=== PATIENT | male | born 1990 | race Hispanic/Latino ===

== ENCOUNTER 2017-11-28 10:06 | Emergency (ER) | payer OTHER ==
[2017-11-28 10:33] VITALS: TEMP 97.3; O2SAT 98
[2017-11-28 10:42] VITALS: BP 130/80; PULSE 92; RESP 18
[2017-11-28] MEDS ORDERED: Lidocaine 5% Patch TD STA (11:08)
[2017-11-28] MEDS ORDERED: Lidocaine 5% Patch TD ONE (11:19)
--- NOTE | 2017-11-28 11:29 | ED PDOC ---
Lower Extremity Pain/Injury Time Seen by Provider: 11/28/17 10:53 Chief Complaint (Nursing): Lower Extremity Problem/Injury History Per: Patient Additional Complaint(s): Pt. states yesterday at work he developed pain in the R buttock while at work. States he sits down at work for approximately 8hrs a day and keeps his wallet in the R back pocket. Pain progressively worsened last night. Reports it is worse with movement of the R hip. Denies trauma, numbness, tingling, radiation of pain, dysuria, hematuria, back pain, abd pain. Past Medical History Reviewed: Historical Data, Nursing Documentation, Vital Signs Vital Signs: Last Vital Signs Temp 97.3 F L 11/28/17 10:42 Pulse 92 H 11/28/17 10:42 Resp 18 11/28/17 10:42 BP 130/80 11/28/17 10:42 Pulse Ox 98 11/28/17 10:42 - Surgical History Surgical History: No Surg Hx - Family History Family History: States: No Known Family Hx - Home Medications Home Medications: Ambulatory Orders Medication Instructions Recorded Cyclobenzaprine [Cyclobenzaprine 10 mg PO Q8 PRN #10 tab 11/28/17 HCl] Lidocaine 5% [Lidoderm] 1 ea TD DAILY PRN #10 patch 11/28/17 Naproxen [Naprosyn] 500 mg PO BID PRN #10 tab 11/28/17 - Allergies Allergies/Adverse Reactions: Allergies Allergy/AdvReac Type Severity Reaction Status Date / Time No Known Allergies Allergy Verified 11/28/17 10:27 Review of Systems ROS Statement: Except As Marked, All Systems Reviewed And Found Negative Physical Exam - Physical Exam Appears: Positive for: Well, Non-toxic, No Acute Distress Skin: Positive for: Normal Color, Warm. Negative for: Rash Eye Exam: Positive for: Normal appearance Pulses-Dorsalis Pedis (L): 2+ Pulses-Dorsalis Pedis (R): 2+ Pulses-Femoral (L): 2+ Pulses-Femoral (R): 2+ Gastrointestinal/Abdominal: Positive for: Normal Exam, Soft. Negative for: Tenderness Back: Positive for: Normal Inspection. Negative for: L CVA Tenderness, R CVA Tenderness, Vertebral Tenderness Extremity: Positive for: Other (R posterior superior thigh just inferior to R buttocks with mild tenderness without warmth, erythema, break in skin integrity , or swelling; SLR positive in R leg; SLR negative in L leg). Negative for: Calf Tenderness (b/l) Neurologic/Psych: Positive for: Alert, Oriented, Gait (antalgic gait noted). Negative for: Aphasia, Facial Droop - ECG O2 Sat by Pulse Oximetry: 98 - Radiology X-Ray: Interpreted by Me (R hip/pelvic x-ray) X-Ray Interpretation: No Acute Disease - Progress ED Course And Treament: Toradol 30mg IM, flexeril 10mg PO, lidoderm patch ordered. R hip x-rays ordered. On re-evaluation, pt. reports moderate analgesia. Disposition - Clinical Impression Clinical Impression: Hip pain - Patient ED Disposition Is Patient to be Admitted: No - Disposition Referrals: Ricardo Asif III, MD [[facility] Provider[facility] Disposition: Routine/Home Disposition Time: 12:36 Condition: IMPROVED Additional Instructions: YANG HERRERA, thank you for letting us take care of you today. Your provider was Ambrose Hinson MD and you were treated for RIGHT LEG PAIN. The emergency medical care you received today was directed at your acute symptoms. If you were prescribed any medication, please fill it and take as directed. It may take several days for your symptoms to resolve. Return to the Emergency Department if your symptoms worsen, do not improve, or if you have any other problems. Please contact your doctor or call one of the physicians/clinics you have been referred to that are listed on the Patient Visit Information form that is included in your discharge packet. Bring any paperwork you were given at discharge with you along with any medications you are taking to your follow up visit. Our treatment cannot replace ongoing medical care by a primary care provider outside of the emergency department. Thank you for allowing the [facility] team to be part of your care today. If you had an X-Ray or CT scan: A Radiologist will review the ED reading if any change in treatment is needed we will contact you. If you had a blood, urine, or wound culture: It will take several days for the results, if any change in treatment is needed we will contact you. If you had an STI test: It will take 48 hours for the results. Please call after 1 week if you have not heard back. Prescriptions: Cyclobenzaprine [Cyclobenzaprine HCl] 10 mg PO Q8 PRN #10 tab PRN Reason: Muscle Spasm Lidocaine 5% [Lidoderm] 1 ea TD DAILY PRN #10 patch PRN Reason: pain Naproxen [Naprosyn] 500 mg PO BID PRN #10 tab PRN Reason: Pain Instructions: Hip Pain (DC) Forms: [employer] (Kosovan), [facility] ED School/Work Excuse Print Language: INDONESIAN
--- NOTE | 2017-11-28 13:38 | RAD ---
Date of service: 11/28/2017 PROCEDURE: Pelvis and right hip HISTORY: Pain. No history of recent/ related trauma provided COMPARISON: None TECHNIQUE: Standard protocol for this study/examination. FINDINGS: There are no osseous abnormalities to suggest fracture. The pelvic ring is intact. Preserved femoral-acetabular relationship. Negative study for protrusio, subluxation or dislocation. Degenerative changes: None. IMPRESSION: No significant or acute findings to account for/ related to the clinical presentation.
== END 2017-11-28 12:50 | disposition home or self-care (01) ==
LOC: H.ER 10:06
DX: M25.551 Pain in right hip (principal)
CPT/HCPCS: 73502; 96372; 99282; J1885